=== PATIENT | female | born 1995 | race Caucasian/White ===

== ENCOUNTER 2025-01-12 13:47 | Emergency (ER) | payer BC ==
[2025-01-12] MEDS ORDERED: NA CHLORIDE 0.9% 1,000 ML ONE (14:31)
[2025-01-12] MEDS ORDERED: FAMOTIDINE 20 MG/2 ML VIAL IV ONE (14:47)
[2025-01-12 14:54] LABS: Absolute Eosinophils 0.3 K/uL (0-0.5); Absolute Lymphocytes (CBC) 1.5 K/uL (0.7-4.9); Absolute Monocytes 0.7 K/uL (0.1-1.3); Absolute Neutrophil 7.1 K/uL (1.8-8.0); Basophils % 0.4 % (0-1.3); Eosinophils % 2.7 % (0-4.4); Hematocrit 40.4 % (36.0-45.0); Hemoglobin 14.6 g/dL (12.0-15.0); Lymphocytes % 15.9 % (15.3-44.8); MCH 33.8 pg (27.0-35.0); MCHC 36.2 g/dL (32.0-36.0); MCV 93.3 fL (80-100); MPV 7.5 fL (7.6-11.3); Monocytes % 7.5 % (3.3-12.3); Neutrophils % 73.5 % (41.7-73.7); Nucleated Red Blood Cells % 0.1 % (0-0); Platelets 243 thou/uL (152-406); RBC Red Blood Cell Count 4.33 M/uL (3.86-4.86); Red Cell Distribution Width 12.2 % (12.1-15.2)
[2025-01-12 15:15] LABS: Albumin 3.1 g/dL (3.4-5.0); Albumin/Globulin Ratio 0.9 (1.1-1.8); Anion Gap 7.6 mEq/L (5.0-15.0); Bilirubin Total 0.4 mg/dL (0.2-1.0); Globulin 3.4 g/dL (2.3-3.5); Potassium 3.6 mEq/L (3.5-5.1); Protein, Total 6.5 g/dL (6.4-8.2); Thyroid Stimulating Hormone 1.56 uIU/mL (0.358-3.740)
--- NOTE | 2025-01-12 15:30 | EDPHYS ---
Physician Documentation [facility] Name: Salome Carbajal Age: 29 yrs Sex: Female : 1995 Arrival Date: 01/12/2025 Time: 13:47 Bed 23 Private MD: ED Physician Prosper Castellanos HPI: 01/12 14:08 This 29 yrs old Female presents to ER via Ambulatory with complaints of jittery feeling sp3 after dairy. 14:08 29-year-old female with history of hypothyroidism, lactose intolerance presents to the 3 ED with chief complaint jittery feeling after taking dairy and not enough lactate according to her. She also had an energy drink this morning. She states that she was shaking and felt her arm start to cramp up which she states has happened in the past when her potassium has been off. She drove to her mom's house and then her mom brought her to the ED. She denies any current or prior headache, neck pain, chest pain, shortness of breath, palpitations, syncope, near syncope, or any other signs or symptoms on ROS at this time. She also denies vomiting or diarrhea but does endorse abdominal cramping due to the lactose intolerance which is now almost fully resolved.. Historical: - Allergies: 14:06 No Known Allergies; iw - PMHx: 14:06 Hypothyroidism; lactose intolerance; iw - PSHx: 14:06 endometriosis; Tonsillectomy; Adenoid excision; iw - Immunization history:: Adult Immunizations up to date. - Infectious Disease History:: Denies. - Social history:: Smoking status: unknown. ROS: 14:10 Constitutional: Negative for fever, chills, and weight loss, Eyes: Negative for injury, sp3 pain, redness, and discharge, ENT: Negative for injury, pain, and discharge, Neck: Negative for injury, pain, and swelling, Cardiovascular: Negative for chest pain, palpitations, and edema, Respiratory: Negative for shortness of breath, cough, wheezing, and pleuritic chest pain, Back: Negative for injury and pain, MS/Extremity: Negative for injury and deformity, Skin: Negative for injury, rash, and discoloration, Allergy/Immunology: Negative for hives, rash, and allergies, Endocrine: Negative for neck swelling, polydipsia, polyuria, polyphagia, and marked weight changes, 14:10 All other systems are negative, Exam: 14:10 Constitutional: This is a well developed, well nourished patient who is awake, alert, sp3 and in no acute distress. Head/Face: Normocephalic, atraumatic. Eyes: Pupils equal round and reactive to light, extra-ocular motions intact. Lids and lashes normal. Conjunctiva and sclera are non-icteric and not injected. Cornea within normal limits. Periorbital areas with no swelling, redness, or edema. ENT: Nares patent. No nasal discharge, no septal abnormalities noted. External auditory canals are clear. Oropharynx with no redness, swelling, or masses, exudates, or evidence of obstruction, uvula midline. Mucous membranes moist. Neck: Trachea midline, no thyromegaly or masses palpated, and no cervical lymphadenopathy. Supple, full range of motion without nuchal rigidity, or vertebral point tenderness. No Meningismus. Chest/axilla: Normal chest wall appearance and motion. Nontender with no deformity. No lesions are appreciated. Cardiovascular: Regular rate and rhythm with a normal S1 and S2. No gallops, murmurs, or rubs. Normal PMI, no JVD. No pulse deficits. Respiratory: Lungs have equal breath sounds bilaterally, clear to auscultation and percussion. No rales, rhonchi or wheezes noted. No increased work of breathing, no retractions or nasal flaring. Abdomen/GI: Soft, non-tender, with normal bowel sounds. No distension or tympany. No guarding or rebound. No evidence of tenderness throughout. Back: No spinal tenderness. No costovertebral tenderness. Full range of motion. Skin: Warm, dry with normal turgor. Normal color with no rashes, no lesions, and no evidence of cellulitis. MS/ Extremity: Pulses equal, no cyanosis. Neurovascular intact. Full, normal range of motion. Neuro: Awake and alert, GCS 15, oriented to person, place, time, and situation. Cranial nerves II-XII grossly intact. Motor strength 5/5 in all extremities. Sensory grossly intact. Cerebellar exam normal. Normal gait. Psych: Awake, alert, with orientation to person, place and time. Behavior, mood, and affect are within normal limits. Vital Signs: 14:04 BP 134 / 85; Pulse 77; Resp 16; Pulse Ox 100% on R/A; Weight 64.41 kg; Height 5 ft. 2 iw in. ; 15:42 BP 124 / 81; Pulse 65; Resp 16; Pulse Ox 98% ; bp 14:04 Body Mass Index 25.97 (64.41 kg, 157.48 cm) iw MDM: 13:54 Medical Screening Exam initiated sp3 14:10 Data reviewed: vital signs, nurses notes, lab test result(s). ED course: 29-year-old sp3 female with jittery feeling and muscle cramping after taking lactulose with not enough lactate. Differential diagnosis includes electrolyte disturbance, dehydration, abdominal cramping due to food, among others. I am at highly suspicious of sepsis, shock, or any other critical pathology or process at this time. Workup will include general labs and observation and treatment will include supportive care with IV fluids. Vital signs are currently normal. If workup negative we will safely discharge patient home.. 15:29 ED course: All lab work negative including thyroid. We will safely discharge patient sp3 home at this time.. 01/12 14:06 Order name: CBC with Diff; Complete Time: 15:28 3 01/12 14:06 Order name: CMP; Complete Time: 15:28 3 01/12 14:06 Order name: Lipase; Complete Time: 15:28 3 01/12 14:06 Order name: TSH; Complete Time: 15:28 sp3 01/12 14:06 Order name: IV Saline Lock; Complete Time: 14:38 3 01/12 14:06 Order name: Labs collected and sent; Complete Time: 14:38 sp3 Administered Medications: 14:38 Drug: NS 0.9% IV 1000 ml IV at 1 bolus Per protocol; to be given as a bolus over 60 bp minutes Route: IV; Rate: 1 bolus; Site: left antecubital; 15:43 Follow up: IV Status: Completed infusion; IV Intake: 1000ml bp 14:56 Drug: Famotidine IVP 20 mg IVP once; dilute with 10 mL 0.9% NaCl; give over 2 minutes bp Route: IVP; Site: left antecubital; 15:43 Follow up: Response: No adverse reaction bp Disposition Summary: 01/12/25 15:29 Discharge Ordered Notes: Location: Home sp3 Condition: Stable sp3 Diagnosis - Lactose intolerance, food sensitivity sp3 Followup: sp3 - With: Private Physician - When: Upon discharge from the Emergency Department - Reason: Continuance of care Discharge Instructions: - Discharge Summary Sheet sp3 - Lactose Intolerance, Adult sp3 Forms: - Medication Reconciliation Form sp3 - Antibiotic Education sp3 - Prescription Opioid Use sp3 - Patient Portal Instructions sp3 - Leadership Thank You Letter sp3 Signatures: Dispatcher [employer] Charlette Purdy RN RN iw Peltier, Brian, RN RN bp Patel, Setul, MD MD sp3
--- NOTE | 2025-01-12 15:30 | ER ---
Nurse's Notes [facility] Name: Salome Carbajal Age: 29 yrs Sex: Female : 1995 Arrival Date: 01/12/2025 Time: 13:47 Bed 23 Private MD: Diagnosis: Lactose intolerance, food sensitivity Presentation: 01/12 14:00 Chief complaint: Chief complaint: Patient states: she had an episode of abd cramping iw after eating cheese, then about 5 minutes later she started having cramping in her hands and her arms felt numb and tingly , she felt shaky and panicky , her mom said she looked pale and she had trouble talking. 14:04 Coronavirus screen: At this time, the client does not indicate any symptoms associated iw with coronavirus-19. Ebola Screen: No symptoms or risks identified at this time. Initial Sepsis Screen: Does the patient meet any 2 criteria? No. Patient's initial sepsis screen is negative. Does the patient have a suspected source of infection? No. Patient's initial sepsis screen is negative. Risk Assessment: Do you want to hurt yourself or someone else? Patient reports no desire to harm self or others. Onset of symptoms was January 12, 2025. 14:04 Method Of Arrival: Ambulatory iw 14:04 Acuity: BART 3 iw Triage Assessment: 14:10 General: Appears in no apparent distress. comfortable, Behavior is cooperative, bp appropriate for age, anxious. Pain: Denies pain. EENT: No deficits noted. Neuro: Level of Consciousness is awake, alert, obeys commands, Oriented to Appropriate for age. Cardiovascular: No deficits noted. Respiratory: No deficits noted. GI: No deficits noted. : No signs and/or symptoms were reported regarding the genitourinary system. Derm: No deficits noted. Musculoskeletal: No deficits noted. Historical: - Allergies: 14:06 No Known Allergies; iw - PMHx: 14:06 Hypothyroidism; lactose intolerance; iw - PSHx: 14:06 endometriosis; Tonsillectomy; Adenoid excision; iw - Immunization history:: Adult Immunizations up to date. - Infectious Disease History:: Denies. - Social history:: Smoking status: unknown. Screenin:42 [facility] ED Fall Risk Assessment (Adult) History of falling in the last 3 months, bp including since admission No falls in past 3 months (0 pts) Confusion or Disorientation No (0 pts) Intoxicated or Sedated No (0 pts) Impaired Gait No (0 pts) Mobility Assist Device Used No (0 pt) Altered Elimination No (0 pt) Score/Fall Risk Level 0 - 2 = Low Risk Oriented to surroundings. Abuse screen: Denies threats or abuse. Denies injuries from another. Nutritional screening: No deficits noted. Tuberculosis screening: No symptoms or risk factors identified. Assessment: 14:10 General: Appears in no apparent distress. Behavior is cooperative, appropriate for age, bp anxious. Vital Signs: 14:04 BP 134 / 85; Pulse 77; Resp 16; Pulse Ox 100% on R/A; Weight 64.41 kg; Height 5 ft. 2 iw in. ; 15:42 BP 124 / 81; Pulse 65; Resp 16; Pulse Ox 98% ; bp 14:04 Body Mass Index 25.97 (64.41 kg, 157.48 cm) iw ED Course: 13:53 Patient arrived in ED. iw 13:53 Prosper Castellanos MD is Attending Physician. sp3 14:06 Triage completed. iw 14:10 Arm band placed on. bp 14:25 Jose Antonio Gaming, RN is Primary Nurse. bp 14:39 Initial lab(s) drawn, by me, sent to lab. Inserted saline lock: 20 gauge in left bp antecubital area, using aseptic technique. Blood collected. Flushed with 10 mL NS. 15:42 Patient has correct armband on for positive identification. bp 15:42 No provider procedures requiring assistance completed. IV discontinued, intact, bp bleeding controlled, No redness/swelling at site. Pressure dressing applied. 15:43 Provided Education on: na. bp Administered Medications: 14:38 Drug: NS 0.9% IV 1000 ml IV at 1 bolus Per protocol; to be given as a bolus over 60 bp minutes Route: IV; Rate: 1 bolus; Site: left antecubital; 15:43 Follow up: IV Status: Completed infusion; IV Intake: 1000ml bp 14:56 Drug: Famotidine IVP 20 mg IVP once; dilute with 10 mL 0.9% NaCl; give over 2 minutes bp Route: IVP; Site: left antecubital; 15:43 Follow up: Response: No adverse reaction bp Medication: 15:42 VIS not applicable for this client. bp Intake: 15:43 IV: 1000ml; Total: 1000ml. bp Outcome: 15:29 Discharge ordered by sp3 15:42 Discharged to home ambulatory, with family, bp 15:42 Condition: stable 15:42 Discharge instructions given to patient, Instructed on discharge instructions, follow up and referral plans. Demonstrated understanding of instructions, follow-up care, 15:44 Patient left the ED. bp Signatures: Charlette Brian RN RN iw Jose Antonio Gaming RN RN bp Prosper Castellanos MD MD sp3 Corrections: (The following items were deleted from the chart) 14:06 14:00 Chief complaint: iw iw
[2025-01-12 22:07] VITALS: BP 124/81; O2SAT 98
== END 2025-01-12 15:44 | disposition home or self-care (01) ==
LOC: ER 13:47
DX: E73.9 Lactose intolerance, unspecified (principal); T78.1XXA Other adverse food reactions, not elsewhere classified, initial encounter
CPT/HCPCS: 85025; 36415; 84443; 83690; 80053; J7030